=== PATIENT | female | born 1955 | race Asian ===

== ENCOUNTER → 2016-07-03 | Outpatient (CLI) | payer MEDICARE, OTHER ==
[~2016-07-03] MED LIST: INSLAN SQ
== END | disposition home or self-care (01) ==
LOC: RADPV 15:09
PROVIDERS: ATTEND Internal Medicine
DX: M51.37 Other intervertebral disc degeneration, lumbosacral region (principal); M47.816 Spondylosis without myelopathy or radiculopathy, lumbar region; M12.88 Other specific arthropathies, not elsewhere classified, other specified site; M25.78 Osteophyte, vertebrae; I70.0 Atherosclerosis of aorta
CPT/HCPCS: 72100; 72170

== ENCOUNTER 2017-06-07 09:38 | Emergency (ER) | payer MEDICARE, OTHER | END 2017-06-07 10:01 | disposition left against medical advice (07) | LOC: EMS 09:39 | DX: R10.9 Unspecified abdominal pain (principal); Z53.21 Procedure and treatment not carried out due to patient leaving prior to being seen by health care provider ==

== ENCOUNTER 2024-07-28 14:00 | Inpatient (IN) | payer MEDICARE, OTHER ==
[~2024-07-28] VITALS: Ht 152.4 cm; Wt 75.0 kg
[~2024-07-28 14:00] MED LIST changes: +CEPH500C2 PO; +DULA0.75 SQ; +FAMO20 PO; +FOLI-130 PO; +GABA-1181 PO; -INSLAN SQ; +INSU100I56 SQ; +INSU3INS3 SQ; +METO-408 PO; +NYST60PO TP; +ROSU40TA88 PO
[2024-07-28 15:30] LABS: APPEARANCE,URINE HAZY (CLEAR); BILIRUBIN,URINE NEGATIVE (NEGATIVE); COLOR,URINE LIGHT YELLOW (YELLOW); GLUCOSE, URINE (UA) TRACE mg/dL (NEGATIVE); KETONES,URINE NEGATIVE (NEGATIVE); LEUKOCYTE ESTERASE ,URINE LARGE (NEGATIVE); NITRATE,URINE POSITIVE (NEGATIVE); OCCULT BLOOD,URINE MODERATE (NEGATIVE); PH,URINE 6.5 (5.0-8.0); PH,URINE DRUG SCREEN 6.5 (5.0-8.0); PROTEIN,URINE 100-200,SEE CONFIRM mg/dL (NEGATIVE); SPECIFIC GRAVITIY, URINE 1.014 (1.003-1.030); UROBILINOGEN,URINE <=1.0 mg/dL (<=1.0)
[2024-07-28] MEDS ORDERED: DEXTROSE 50%-WATER 25 GM/50 ML SYRINGE IVP PRN (15:30)
[2024-07-28] MEDS ORDERED: ONDANSETRON HCL 4 MG/2 ML VIAL IVP PRN (15:30)
[2024-07-28] MEDS ORDERED: ACETAMINOPHEN 325 MG TABLET PO PRN (15:30)
[2024-07-28] MEDS ORDERED: MAGNESIUM HYDROXIDE SUSPENSION 30 ML UDCUP PO PRN (15:30)
[2024-07-28 15:33] LABS: ALCOHOL, URINE DRUG SCREEN NEGATIVE (NEGATIVE); AMPHET/METH SCREEN,URINE NEGATIVE (NEGATIVE); BARBITURATE SCREEN, URINE NEGATIVE (NEGATIVE); BENZODIAZEPINES SCREEN,URINE NEGATIVE (NEGATIVE); CANNABINOID SCREEN,URINE NEGATIVE (NEGATIVE); COCAINE SCREEN,URINE NEGATIVE (NEGATIVE); METHADONE SCREEN, URINE NEGATIVE (NEGATIVE); OPIATE SCREEN,URINE POSITIVE (NEGATIVE); PHENCYCLIDINE SCREEN,URINE NEGATIVE (NEGATIVE)
[2024-07-28 15:36] LABS: BASOPHILS % (AUTO) 0.4 % (0.0-2.0); EOSINOPHILS % (AUTO) 3.3 % (1.0-6.0); HEMOGLOBIN 9.8 g/dL (12.0-16.0); LYMPHOCYTES % (AUTO) 42.9 % (22.0-44.0); MEAN CORPUSCULAR HEMOGLOBIN 28.7 pg (26.0-34.0); MEAN CORPUSCULAR HGB CONC 32.5 G/dL (31.0-37.0); MEAN CORPUSCULAR VOLUME 88 fL (80-100); MONOCYTES # (AUTO) 0.7 K/uL (0.1-1.0); MONOCYTES % (AUTO) 9.3 % (2.0-9.0); NEUTROPHILS # (AUTO) 3.1 K/uL (1.8-7.7); NEUTROPHILS % (AUTO) 44.1 % (40.0-70.0); PLATELET COUNT (AUTO) 296 K/uL (150-450); RED BLOOD CELL COUNT(AUTO) 3.41 MIL/uL (4.00-5.20); RED CELL DISTRIBUTION WIDTH 16.4 % (11.5-14.5)
[2024-07-28 15:40] LABS: CREATININE 1.95 mg/dL (0.60-1.30)
[2024-07-28 15:49] LABS: LACTIC ACID 1.5 mmol/L (0.4-2.0)
[2024-07-28] MEDS: HEPARIN SODIUM,PORCINE 5,000 UNITS/ML VIAL SQ SCH (16:00)
[2024-07-28 16:05] LABS: BACTERIA,URINE Many /HPF (None Seen); SQUAMOUS EPITHELIAL CELL,UR Few /LPF (None Seen); WBC,URINE 26-50 /HPF (0-5)
[2024-07-28 16:06] LABS: SULFOSALICYLIC ACID,URINE 1+ (Negative)
[2024-07-28] MEDS: SODIUM CHLORIDE 0.9% 1,000 ML IV ONE (16:19)
[2024-07-28] MEDS: LORazepam 2 MG/ML VIAL IVP PRN (17:41)
[2024-07-28] MEDS: DiphenhydrAMINE HCL 50 MG/ML VIAL IM ONE (19:06)
[2024-07-28] MEDS: haloperidoL LACTATE 5 MG/ML VIAL IM ONE (19:06)
[2024-07-28] MEDS: LORazepam 2 MG/ML VIAL IM ONE (19:07)
[2024-07-28] MEDS: CefTRIAXone 1 GM/DEXTROSE 50 ML IV ONE (20:19)
[2024-07-28] MEDS: DOCUSATE SODIUM 100 MG CAPSULE PO SCH (20:21)
[2024-07-28] MEDS: INSULIN GLARGINE,HUM.REC.ANLOG 100 UNITS/ML SQ SCH (21:58)
[2024-07-28 22:11] LABS: GLUCOMETER DEV NAME(LOC) ERT.7; GLUCOSE,POINT OF CARE 198 MG/DL (70-110)
[2024-07-28 22:50] VITALS: BP 153/75; PULSE 90; RESP 18; TEMP 96.4; O2SAT 96
[2024-07-29 00:30] VITALS: TEMP 97.3
[2024-07-29 01:21] LABS: GLUCOMETER DEV NAME(LOC) 6N.2B; GLUCOSE,POINT OF CARE 181 MG/DL (70-110)
[2024-07-29 05:30] VITALS: BP 100/74; PULSE 99; RESP 18; TEMP 97.7; O2SAT 97
[2024-07-29] MEDS: INSULIN LISPRO 100 UNITS/ML SQ PRN (06:43)
[2024-07-29 07:00] LABS: GLUCOMETER DEV NAME(LOC) 6S.1D; GLUCOSE,POINT OF CARE 169 MG/DL (70-110)
[2024-07-29 07:35] VITALS: BP 126/77; PULSE 93; RESP 18; TEMP 97.5; O2SAT 95
[2024-07-29] MEDS: MULTIVITAMINS WITH MINERALS, THERAPEUTIC TABLET PO SCH (08:38)
[2024-07-29] MEDS: FAMOTIDINE 20 MG TABLET PO SCH (08:38)
[2024-07-29] MEDS ORDERED: INSU100I94 SQ (13:47)
[2024-07-29] MEDS ORDERED: INSU100I3 SQ (13:47)
[2024-07-29] MEDS ORDERED: HEPA500018 SQ (13:47)
[2024-07-29 16:01] VITALS: BP 150/98; PULSE 100; RESP 18; TEMP 98.1; O2SAT 100
[2024-07-29 18:26] LABS: GLUCOMETER DEV NAME(LOC) 6S.1D; GLUCOSE,POINT OF CARE 213 MG/DL (70-110)
[2024-07-29 18:26] LABS: GLUCOMETER DEV NAME(LOC) 6S.1D; GLUCOSE,POINT OF CARE 227 MG/DL (70-110)
[2024-07-29 19:45] VITALS: BP 120/69; PULSE 77; RESP 18; TEMP 98.1; O2SAT 97
[2024-07-29] MEDS: CefTRIAXone 1 GM/DEXTROSE 50 ML IV SCH (19:58)
[2024-07-29 23:16] LABS: GLUCOMETER DEV NAME(LOC) 6S.1D; GLUCOSE,POINT OF CARE 236 MG/DL (70-110)
[2024-07-30] MEDS: OxyCODONE HCL/ACETAMINOPHEN 5-325 MG TABLET PO PRN (03:59)
[2024-07-30 04:45] VITALS: BP 116/55; PULSE 95; RESP 18; TEMP 98.1; O2SAT 97
[2024-07-30 07:50] LABS: GLUCOMETER DEV NAME(LOC) 6S.1D; GLUCOSE,POINT OF CARE 225 MG/DL (70-110)
[2024-07-30] MEDS: ETHYL ALCOHOL 62% ANTISEPTIC NASAL SANITIZER 0.6 ML AMPUL NASAL SCH (08:01)
[2024-07-30 16:01] VITALS: BP 167/65; PULSE 87; RESP 17; TEMP 97.6; O2SAT 100
[2024-07-30] MEDS ORDERED: CEFT1VIA65 IV (17:27)
[2024-07-30] MEDS ORDERED: DOCU-385 PO (17:28)
[2024-07-30] MEDS ORDERED: ETHY1MED2 NASAL (17:29)
[2024-07-30] MEDS ORDERED: INSLAN SQ (17:32)
[2024-07-30] MEDS ORDERED: MULT-1303 PO (17:33)
[2024-07-30] MEDS ORDERED: ACET-2247 PO (17:34)
[2024-07-30] MEDS ORDERED: INSU100V SQ (17:36)
[2024-07-30] MEDS ORDERED: MAGN-169 PO (17:45)
[2024-07-30] MEDS ORDERED: PERCT PO (17:48)
[2024-07-30 20:57] VITALS: BP 152/70; PULSE 93; RESP 18; TEMP 97.9; O2SAT 96
[2024-07-30 21:41] LABS: GLUCOMETER DEV NAME(LOC) 6N.2B; GLUCOSE,POINT OF CARE 201 MG/DL (70-110)
[2024-07-31 06:01] LABS: GLUCOMETER DEV NAME(LOC) 6S.2; GLUCOSE,POINT OF CARE 208 MG/DL (70-110)
[2024-07-31 06:01] LABS: GLUCOMETER DEV NAME(LOC) 6S.2; GLUCOSE,POINT OF CARE 185 MG/DL (70-110)
== END 2024-07-30 22:27 | DRG 689 ==
LOC: EMS 14:00 → EDH 15:30 → 6N 23:00
PROVIDERS: ADMIT Internal Medicine; ATTEND Internal Medicine
DX: N39.0 Urinary tract infection, site not specified (principal); L89.314 Pressure ulcer of right buttock, stage 4; R53.2 Functional quadriplegia; L89.324 Pressure ulcer of left buttock, stage 4; D63.8 Anemia in other chronic diseases classified elsewhere; E11.9 Type 2 diabetes mellitus without complications; E66.9 Obesity, unspecified; F03.90 Unspecified dementia, unspecified severity, without behavioral disturbance, psychotic disturbance, mood disturbance, and anxiety; F91.9 Conduct disorder, unspecified; I10 Essential (primary) hypertension; F32.A Depression, unspecified; K21.9 Gastro-esophageal reflux disease without esophagitis; N28.9 Disorder of kidney and ureter, unspecified; Z83.3 Family history of diabetes mellitus; Z79.4 Long term (current) use of insulin; Z88.1 Allergy status to other antibiotic agents; Z68.32 Body mass index [BMI] 32.0-32.9, adult
CPT/HCPCS: 80048; 80307; 81001; 81002; 82962; 83605; 85025; 87040; 87077; 87081; 87086; 87186; 99285; G0480; J0696; J1200; J1630; J1644; J1815; J2060